=== PATIENT | male | born 1995 | race American Indian/Alaskan Native ===

== ENCOUNTER 2018-04-04 03:33 | Emergency (ER) | payer OTHER ==
[2018-04-04 03:42] VITALS: RESP 16
[2018-04-04] MEDS ORDERED: Sodium Chloride 0.9% 1,000 ML IV STA ×3 (03:56→06:29)
[2018-04-04] MEDS ORDERED: Famotidine 20mg/50ml Premix IVPB STA (04:01)
[2018-04-04] MEDS ORDERED: Famotidine 20mg/50ml 20 MG/50 ML BAG IVPB ONE (04:17)
[2018-04-04 04:20] LABS: BASO % 0.5 % (0.0-2.0); EOS # 0.1 K/uL (0.0-0.7); EOS % 0.9 % (0.0-4.0); HEMOGLOBIN 16.2 g/dL (12.0-18.0); LYMPH # 1.3 K/uL (1.0-4.3); LYMPH % 13.2 % (20.0-40.0); MEAN CELL VOLUME 89.3 fl (80.0-94.0); MEAN CORPUSCULAR HEMOGLOBIN 30.8 pg (27.0-31.0); MEAN CORPUSCULAR HGB CONC 34.5 g/dL (33.0-37.0); MEAN PLATELET VOLUME 8.6 fl (7.2-11.7); MONO # 1.1 K/uL (0.0-0.8); MONO % 11.3 % (0.0-10.0); NEUT # 7.1 K/uL (1.8-7.0); NEUT % 74.1 % (50.0-75.0); RBC 5.24 Mil/uL (4.40-5.90); RED CELL DISTRIBUTION WIDTH 13.9 % (11.5-14.5); WHITE BLOOD COUNT 9.5 K/uL (4.8-10.8)
[2018-04-04 04:29] LABS: ALB/GLOB RATIO 1.3 (1.0-2.1); ALBUMIN 4.8 g/dL (3.5-5.0); ALT/SGPT 44 U/L (21-72); AST/SGOT 37 U/L (17-59); BILIRUBIN,DIRECT 0.7 mg/ml (0.0-0.4); BLOOD UREA NITROGEN 15 mg/dl (9-20); CALCIUM 9.4 mg/dL (8.4-10.2); GFR AFRICAN-AMERICAN > 60; GFR NON-AFRICAN AMERICAN > 60
--- NOTE | 2018-04-04 04:41 | ED PDOC ---
HPI: Abdomen Time Seen by Provider: 04/04/18 03:46 Chief Complaint (Nursing): Abdominal Pain Chief Complaint (Provider): Abdominal Pain History Per: Patient, Other (friend) History/Exam Limitations: no limitations Onset/Duration Of Symptoms: Days Current Symptoms Are (Timing): Still Present Associated Symptoms: Nausea, Vomiting Additional Complaint(s): Jermaine Allen is a 22 year old male with no past medical history who is presenting to the ED for evaluation of alcohol ingestion, onset last night. Patients friend states that they brought him here for alcohol poisoning. Patient states that from two nights ago into yesterday morning he cannot remember how much alcohol he drank. Late last night patient states that he felt more nausea and vomited more times that he remembered. He described the vomit as yellow bile acid: with no blood. He reports normal stool, no abdominal pain, and decreased urinary output. Patient offers no other medical complaints at this time. PMD: none provided Past Medical History Reviewed: Historical Data, Nursing Documentation, Vital Signs Vital Signs: Last Vital Signs Temp 99.6 F 04/04/18 03:39 Pulse 98 H 04/04/18 03:39 Resp 16 04/04/18 03:39 BP 140/89 04/04/18 03:39 Pulse Ox 100 04/04/18 05:27 - Medical History PMH: No Chronic Diseases - Surgical History Surgical History: No Surg Hx - Family History Family History: States: Unknown Family Hx - Social History Alcohol: Other (cant remember how much he drank) - Allergies Allergies/Adverse Reactions: Allergies Allergy/AdvReac Type Severity Reaction Status Date / Time No Known Allergies Allergy Verified 04/04/18 03:42 Review of Systems ROS Statement: Except As Marked, All Systems Reviewed And Found Negative Gastrointestinal: Positive for: Nausea, Vomiting. Negative for: Abdominal Pain Genitourinary Male: Positive for: Other (decreased urinary output) Physical Exam - Reviewed Nursing Documentation Reviewed: Yes Vital Signs Reviewed: Yes - Physical Exam Appears: Positive for: Non-toxic, No Acute Distress, Uncomfortable (actively retching) Head Exam: Positive for: ATRAUMATIC, NORMAL INSPECTION, NORMOCEPHALIC Skin: Positive for: Normal Color, Warm, DRY Eye Exam: Positive for: EOMI, Normal appearance, PERRL ENT: Positive for: Normal ENT Inspection Neck: Positive for: Normal, Painless ROM Cardiovascular/Chest: Positive for: Regular Rate, Rhythm. Negative for: Murmur Respiratory: Positive for: Normal Breath Sounds. Negative for: Respiratory Distress Gastrointestinal/Abdominal: Positive for: Normal Exam, Soft. Negative for: Tenderness Back: Positive for: Normal Inspection Extremity: Positive for: Normal ROM. Negative for: Deformity Neurologic/Psych: Positive for: Alert, Oriented. Negative for: Motor/Sensory Deficits - Laboratory Results Result Diagrams: 04/04/18 04:00 04/04/18 04:00 - ECG O2 Sat by Pulse Oximetry: 100 (RA) Pulse Ox Interpretation: Normal Medical Decision Making Medical Decision Making: Time: 4:00 Male with no past medical history s/p large alcoholic binge with nausea and vomiting. Patient likely suffering from alcohol induced emesis. Will provide symptomatic care, check blood work, and reevaluate patient. 0700 Patient's lactate elevated, will continue to hydrate, check repeat lactate. Will endorse to Dr. Acharya. Scribe Attestation: Documented by, Olesya Hernandez acting as a scribe for Michael Potter MD. Provider Scribe Attestation: All medical record entries made by the Scribe were at my direction and personally dictated by me. I have reviewed the chart and agree that the record accurately reflects my personal performance of the history, physical exam, medical decision making, and the department course for this patient. I have also personally directed, reviewed, and agree with the discharge instructions and disposition. Disposition - Clinical Impression Clinical Impression: Dehydration - Disposition Disposition: Transfer of Care Disposition Time: 07:00 Condition: STABLE Forms: [employer] ([place]) Patient Signed Over To: Haily Acharya Handoff Comments: pending re-eval and repeat lactate
--- NOTE | 2018-04-04 07:26 | ED PDOC ---
- Laboratory Results Result Diagrams: 04/04/18 04:00 04/04/18 04:00 - ECG O2 Sat by Pulse Oximetry: 100 (RA) Pulse Ox Interpretation: Normal - Progress Condition: Re-examined, Improved Medical Decision Making Medical Decision Making: Time: 7:00 --Patient signed over to this provider by Dr. Potter, pending reevaluation. Scribe Attestation: Documented by Ernestine Colunga, acting as a scribe for Haily Acharya MD Provider Scribe Attestation: All medical record entries made by the Scribe were at my direction and personally dictated by me. I have reviewed the chart and agree that the record accurately reflects my personal performance of the history, physical exam, medical decision making, and the department course for this patient. I have also personally directed, reviewed, and agree with the discharge instructions and disposition Disposition Counseled Patient/Family Regarding: Studies Performed, Diagnosis, Need For Followup - Clinical Impression Clinical Impression: Dehydration, Vomiting - POA Present On Arrival: None - Disposition Referrals: [facility] [Outside] Disposition: Routine/Home Disposition Time: 10:00 Condition: GOOD Additional Instructions: Return for worsening. Follow up with your PCP in 2-3 days. Prescriptions: Ondansetron ODT [Zofran ODT] 4 mg PO Q8 PRN #12 odt PRN Reason: Nausea/Vomiting Instructions: Dehydration, Adult (DC), Nausea and Vomiting, Adult (DC)
[2018-04-04 09:12] VITALS: BP 122/58; PULSE 68; TEMP 98.8
[2018-04-04 09:56] LABS: LIPASE 98 U/L (23-300)
[2018-04-08 11:09] VITALS: O2SAT 100
== END 2018-04-04 10:26 | disposition home or self-care (01) ==
LOC: H.ER 03:33
DX: E86.0 Dehydration (principal)
CPT/HCPCS: 80048; 80076; 83605; 83690; 85025; 96374; 99283; J2405; J7030